=== PATIENT | female | born 1960 | race African-American/Black ===

== ENCOUNTER 2017-02-22 07:13 | Emergency (ER) | payer OTHER ==
[~2017-02-22] VITALS: Ht 162.6 cm; Wt 54.0 kg
[~2017-02-22 07:13] MED LIST: ACET-3161; AZIT500T5 PO; DULO60CA63; HYDR-3927; IBUP-2029; LEVO500T15 PO; METH-612
[2017-02-22] MEDS ORDERED: MORPHINE SULFATE 4 MG/ML CPJ (NOT FOR IM USE) IV STA (07:25)
[2017-02-22] MEDS ORDERED: ONDANSETRON HCL 4MG/2ML VIAL IV STA (07:25)
[2017-02-22] MEDS ORDERED: SODIUM CHLORIDE 0.9% 1000ML BAG (SEPSIS BOLUS) IV ONE (07:30)
[2017-02-22 08:07] LABS: BASOPHILS % 0.3 % (0.0-2.0); EOSINOPHILS % 0.3 % (0.0-5.0); HEMATOCRIT. 35.8 % (36.0-48.0); HEMOGLOBIN. 11.9 g/dL (12.0-16.0); LYMPHOCYTES % 37.6 % (20.0-50.0); MEAN CORPUSCULAR VOLUME 90.3 fL (81.0-99.0); MEAN PLATELET VOLUME 8.1 fl (7.4-10.4); MONOCYTES % 10.2 % (2.0-8.0); NEUTROPHILS % 51.6 % (40.0-76.0); PLATELET 194 x1000/uL (130-400); RED BLOOD CELL COUNT 3.96 mill/uL (4.2-5.4); RED CELL DISTRIBUTION WIDTH 13.1 % (11.6-14.6)
[2017-02-22 08:11] LABS: PROTHROMBIN TIME 10.7 sec
[2017-02-22 08:23] LABS: CHLORIDE 106 mEq/L (98-107)
[2017-02-22 08:32] LABS: CARBON DIOXIDE 22 mEq/L (21-32); ETHANOL BLOOD < 10 mg/dL
[2017-02-22 08:35] LABS: TROPONIN I < 0.02 ng/mL (0.00-0.04)
[2017-02-22 09:12] LABS: GLUCOSE URINE NEGATIVE (NEGATIVE); KETONES URINE 1+ (NEGATIVE); LEUKOCYTE ESTERASE URINE NEGATIVE (NEGATIVE); NITRITE URINE NEGATIVE (NEGATIVE); OCCULT BLOOD URINE NEGATIVE (NEGATIVE); PROTEIN URINE NEGATIVE (NEGATIVE); SPECIFIC GRAVITY URINE 1.012 (1.005-1.030); UROBILINOGEN URINE 0.2 E.U./dL (0.2-1.0)
[2017-02-22 09:14] LABS: CLARITY URINE CLEAR (CLEAR); COLOR URINE PALE YELLOW (YELLOW)
[2017-02-22 10:05] LABS: *AMPHETAMINES SCREEN URINE NEGATIVE (NEGATIVE); *BARBITURATES SCREEN URINE NEGATIVE (NEGATIVE); *BENZODIAZEPINES SCREEN URINE NEGATIVE (NEGATIVE); *COCAINE SCREEN URINE PRESUMTIVE POSITIVE (NEGATIVE); CANNABINOID URINE SCREEN NEGATIVE (NEGATIVE); METHADONE URINE SCREEN NEGATIVE (NEGATIVE); OPIATES URINE SCREEN NEGATIVE (NEGATIVE); PHENCYCLIDINE URINE SCREEN NEGATIVE (NEGATIVE)
[2017-02-22 10:30] VITALS: BP 164/78
== END 2017-02-22 10:30 | disposition home or self-care (01) ==
LOC: ER 07:23
DX: R10.13 Epigastric pain (principal); Z88.0 Allergy status to penicillin; Z88.6 Allergy status to analgesic agent; Z79.899 Other long term (current) drug therapy; F17.200 Nicotine dependence, unspecified, uncomplicated; J45.909 Unspecified asthma, uncomplicated; E03.9 Hypothyroidism, unspecified; E11.65 Type 2 diabetes mellitus with hyperglycemia
CPT/HCPCS: 36415; 71010; 80053; 80305; 81003; 83605; 83690; 83880; 84484; 85025; 85610; 87040; 87086; 93005; 96361; 96374; 96375; 99285; G0482; J2270; J2405; J7030; Z7610

== ENCOUNTER 2017-03-12 08:34 | Emergency (ER) | payer MEDICAID, OTHER ==
[2017-03-12 09:28] LABS: BASOPHILS % 0.3 % (0.0-2.0); HEMATOCRIT. 36.4 % (36.0-48.0); HEMOGLOBIN. 12.1 g/dL (12.0-16.0); LYMPHOCYTES % 39.9 % (20.0-50.0); MEAN CORPUSCULAR HEMOGLOBIN 29.7 pg (28.0-32.0); MEAN CORPUSCULAR VOLUME 89.5 fL (81.0-99.0); MEAN PLATELET VOLUME 8.2 fl (7.4-10.4); MONOCYTES % 7.9 % (2.0-8.0); NEUTROPHILS % 50.9 % (40.0-76.0); PLATELET 239 x1000/uL (130-400); RED BLOOD CELL COUNT 4.07 mill/uL (4.2-5.4); RED CELL DISTRIBUTION WIDTH 12.6 % (11.6-14.6)
[2017-03-12 09:34] LABS: PROTHROMBIN TIME 10.7 sec
[2017-03-12 09:36] LABS: AMMONIA 22 uMol/L (<32)
[2017-03-12 09:40] LABS: CARBON DIOXIDE 29 mEq/L (21-32); CHLORIDE 102 mEq/L (98-107); ETHANOL BLOOD < 10 mg/dL; TROPONIN I < 0.02 ng/mL (0.00-0.04)
[2017-03-12 09:54] LABS: CLARITY URINE CLEAR (CLEAR); COLOR URINE YELLOW (YELLOW); GLUCOSE URINE NEGATIVE (NEGATIVE); KETONES URINE NEGATIVE (NEGATIVE); LEUKOCYTE ESTERASE URINE NEGATIVE (NEGATIVE); NITRITE URINE NEGATIVE (NEGATIVE); OCCULT BLOOD URINE NEGATIVE (NEGATIVE); PROTEIN URINE NEGATIVE (NEGATIVE); SPECIFIC GRAVITY URINE 1.013 (1.005-1.030); UROBILINOGEN URINE 0.2 E.U./dL (0.2-1.0)
[2017-03-12 10:30] LABS: *AMPHETAMINES SCREEN URINE NEGATIVE (NEGATIVE); *BARBITURATES SCREEN URINE NEGATIVE (NEGATIVE); *BENZODIAZEPINES SCREEN URINE PRESUMTIVE POSITIVE (NEGATIVE); *COCAINE SCREEN URINE NEGATIVE (NEGATIVE); CANNABINOID URINE SCREEN NEGATIVE (NEGATIVE); METHADONE URINE SCREEN NEGATIVE (NEGATIVE); OPIATES URINE SCREEN NEGATIVE (NEGATIVE); PHENCYCLIDINE URINE SCREEN NEGATIVE (NEGATIVE)
[2017-03-12] MEDS ORDERED: SODIUM CHLORIDE 0.9% 1,000 ML IV ONE (10:42)
[2017-03-12 12:11] VITALS: BP 122/87
== END 2017-03-12 12:13 | disposition home or self-care (01) ==
LOC: ER 08:51
DX: R53.1 Weakness (principal); G89.29 Other chronic pain; M54.5 Low back pain; F32.9 Major depressive disorder, single episode, unspecified; E11.9 Type 2 diabetes mellitus without complications; J45.909 Unspecified asthma, uncomplicated; E03.9 Hypothyroidism, unspecified; F17.200 Nicotine dependence, unspecified, uncomplicated; Z88.0 Allergy status to penicillin; Z88.6 Allergy status to analgesic agent; Z88.8 Allergy status to other drugs, medicaments and biological substances; Z91.041 Radiographic dye allergy status; Z79.899 Other long term (current) drug therapy; Z90.49 Acquired absence of other specified parts of digestive tract
CPT/HCPCS: 36415; 80053; 80305; 80307; 80329; 81003; 82140; 83880; 84443; 84484; 85025; 85610; 93005; 99285; G0482; Z7610; J7030

== ENCOUNTER 2017-03-14 07:35 | Inpatient (IN) | payer MEDICAID, OTHER ==
[~2017-03-14] VITALS: Ht 160 cm; Wt 54.9 kg
[2017-03-14 09:19] LABS: BASOPHILS % 0.4 % (0.0-2.0); EOSINOPHILS % 0.7 % (0.0-5.0); HEMATOCRIT. 32.2 % (36.0-48.0); HEMOGLOBIN. 10.7 g/dL (12.0-16.0); MEAN CORPUSCULAR HEMOGLOBIN 29.8 pg (28.0-32.0); MEAN CORPUSCULAR VOLUME 89.6 fL (81.0-99.0); MEAN PLATELET VOLUME 8.2 fl (7.4-10.4); MONOCYTES % 9.6 % (2.0-8.0); NEUTROPHILS % 46.3 % (40.0-76.0); PLATELET 230 x1000/uL (130-400); RED CELL DISTRIBUTION WIDTH 12.7 % (11.6-14.6)
[2017-03-14 09:24] LABS: CHLORIDE 104 mEq/L (98-107)
[2017-03-14 09:32] LABS: CARBON DIOXIDE 23 mEq/L (21-32); ETHANOL BLOOD < 10 mg/dL
[2017-03-14 10:43] LABS: T4 FREE 3.51 ng/dL (0.76-1.46)
[2017-03-14] MEDS ORDERED: HYDROCORTISONE SOD SUCCINATE 100 MG/2 ML VIAL IV ONE (12:30)
[2017-03-14] MEDS ORDERED: LORAZEPAM 2MG/ML CPJ IV ONE (12:30)
[2017-03-14] MEDS ORDERED: POTASSIUM IODIDE 1 GM/ML PO ONE (12:30)
[2017-03-14] MEDS ORDERED: METOPROLOL TARTRATE 5MG/5ML VIAL IV ONE (12:30)
[2017-03-14] MEDS ORDERED: ONDANSETRON HCL 4MG/2ML VIAL IV ONE (12:45)
[2017-03-14] MEDS ORDERED: MORPHINE SULFATE 4 MG/ML CPJ (NOT FOR IM USE) IV ONE (12:45)
[2017-03-14 17:02] VITALS: BP 152/66
[2017-03-14 17:52] VITALS: BP 152/66
[2017-03-14 20:00] VITALS: BP 118/61
[2017-03-14] MEDS: LORAZEPAM 2MG/ML CPJ IV PRN (20:53)
[2017-03-14] MEDS ORDERED: DEXTROSE 50% WATER 50ML SYRINGE IV PRN (22:00)
[2017-03-14] MEDS: HYDROCORTISONE SOD SUCCINATE 100 MG/2 ML VIAL IV SCH (23:18)
[2017-03-15] VITALS: BP 110/59
[2017-03-15] MEDS: LORAZEPAM 2MG/ML CPJ IV PRN ×5 (02:06→20:58)
[2017-03-15 04:00] VITALS: BP 99/41
[2017-03-15] MEDS: BLOOD SUGAR DIAGNOSTIC STRIP TEST SCH ×4 (06:00→21:00)
[2017-03-15] MEDS: HYDROCORTISONE SOD SUCCINATE 100 MG/2 ML VIAL IV SCH ×3 (06:00→22:06)
[2017-03-15 06:35] LABS: HEMATOCRIT 28.9 % (36.0-48.0); HEMOGLOBIN 9.7 g/dL (12.0-16.0); MEAN CORPUSCULAR VOLUME 89.8 fL (81.0-99.0); PLATELET 218 x1000/uL (130-400); RED BLOOD CELL COUNT 3.22 mill/uL (4.2-5.4); RED CELL DISTRIBUTION WIDTH 12.7 % (11.6-14.6)
[2017-03-15] MEDS: INSULIN LISPRO 100 UNITS/ML SUBCUT SCH ×4 (06:44→21:00)
[2017-03-15 08:30] VITALS: BP 130/64
[2017-03-15] MEDS ORDERED: PROPRANOLOL HCL 10MG TABLET PO SCH ×2 (09:00→21:00)
[2017-03-15 12:00] VITALS: BP 112/40
[2017-03-15] MEDS: PROPRANOLOL HCL 20MG TABLET PO SCH ×3 (14:00→21:27)
[2017-03-15 20:00] VITALS: BP 106/58
[2017-03-15] MEDS: QUETIAPINE FUMARATE 25MG TABLET PO SCH (21:00)
[2017-03-15 21:36] LABS: CARBON DIOXIDE 20 mEq/L (21-32); CHLORIDE 115 mEq/L (98-107)
[2017-03-16] VITALS: BP 139/72
[2017-03-16] MEDS: SODIUM CHLORIDE 0.45% 1,000 ML IV SCH ×2 (00:58→10:19)
[2017-03-16] MEDS: PROPYLTHIOURACIL 50MG TABLET PO SCH ×6 (00:58→20:00)
[2017-03-16] MEDS: LORAZEPAM 2MG/ML CPJ IV PRN ×4 (02:23→14:24)
[2017-03-16 04:00] VITALS: BP 126/65
[2017-03-16] MEDS: HYDROCORTISONE SOD SUCCINATE 100 MG/2 ML VIAL IV SCH ×3 (05:02→22:37)
[2017-03-16] MEDS: PROPRANOLOL HCL 20MG TABLET PO SCH ×3 (05:03→22:38)
[2017-03-16 06:12] LABS: BASOPHILS % 0.1 % (0.0-2.0); HEMATOCRIT. 30.7 % (36.0-48.0); HEMOGLOBIN. 10.3 g/dL (12.0-16.0); LYMPHOCYTES % 22.8 % (20.0-50.0); MEAN CORPUSCULAR HEMOGLOBIN 30.1 pg (28.0-32.0); MEAN CORPUSCULAR VOLUME 90.2 fL (81.0-99.0); MEAN PLATELET VOLUME 8.2 fl (7.4-10.4); MONOCYTES % 6.2 % (2.0-8.0); NEUTROPHILS % 70.9 % (40.0-76.0); PLATELET 231 x1000/uL (130-400); RED BLOOD CELL COUNT 3.41 mill/uL (4.2-5.4); RED CELL DISTRIBUTION WIDTH 12.8 % (11.6-14.6)
[2017-03-16] MEDS: BLOOD SUGAR DIAGNOSTIC STRIP TEST SCH ×4 (06:29→21:00)
[2017-03-16] MEDS: INSULIN LISPRO 100 UNITS/ML SUBCUT SCH ×4 (06:31→23:11)
[2017-03-16 06:48] LABS: CHLORIDE 114 mEq/L (98-107)
[2017-03-16 07:01] LABS: CARBON DIOXIDE 20 mEq/L (21-32); HDL CHOLESTEROL 51 mg/dL (40-59); LDL CHOLESTEROL 88 mg/dL (5-100); PHOSPHORUS 4.9 mg/dL (2.5-4.9); PREALBUMIN 21.6 mg/dL (20.0-40.0); T4 FREE 3.33 ng/dL (0.76-1.46)
[2017-03-16 08:00] VITALS: BP 126/69
[2017-03-16] MEDS: QUETIAPINE FUMARATE 25MG TABLET PO SCH ×2 (08:37→22:38)
[2017-03-16] MEDS: POTASSIUM CHLORIDE 20MEQ/PACKET PO SCH ×2 (11:35→13:46)
[2017-03-16 12:30] VITALS: BP 109/59
[2017-03-16 16:08] VITALS: BP 126/64
[2017-03-16 20:00] VITALS: BP 143/78
[2017-03-16] MEDS ORDERED: HALOPERIDOL LACTATE 5MG/ML VIAL IM ONE (22:30)
[2017-03-16] MEDS ORDERED: LORAZEPAM 2MG/ML CPJ IV NR (22:30)
[2017-03-16] MEDS ORDERED: LORAZEPAM 2MG/ML CPJ IV ONE (22:30)
[2017-03-16] MEDS ORDERED: DIPHENHYDRAMINE 50MG/ML VIAL IV ONE ×2 (22:30)
[2017-03-16] MEDS ORDERED: HALOPERIDOL LACTATE 5MG/ML VIAL IM NR (22:31)
[2017-03-16] MEDS: DIPHENHYDRAMINE 50MG/ML VIAL IV NR ×2 (22:39→23:28)
[2017-03-17] VITALS: BP 141/82
[2017-03-17] MEDS: LORAZEPAM 2MG/ML CPJ IV PRN ×6 (00:39→22:44)
[2017-03-17] MEDS: PROPYLTHIOURACIL 50MG TABLET PO SCH ×8 (00:39→23:58)
[2017-03-17] MEDS: SODIUM CHLORIDE 0.45% 1,000 ML IV SCH ×3 (01:10→16:59)
[2017-03-17 04:00] VITALS: BP 160/73
[2017-03-17] MEDS: PROPRANOLOL HCL 20MG TABLET PO SCH ×3 (05:33→22:00)
[2017-03-17] MEDS: HYDROCORTISONE SOD SUCCINATE 100 MG/2 ML VIAL IV SCH ×3 (05:33→20:49)
[2017-03-17 06:27] LABS: CARBON DIOXIDE 22 mEq/L (21-32); CHLORIDE 115 mEq/L (98-107); PHOSPHORUS 3.5 mg/dL (2.5-4.9); TOTAL IRON BINDING CAPACITY 257 ug/dL (250-450)
[2017-03-17 06:28] LABS: AMMONIA 13 uMol/L (<32)
[2017-03-17] MEDS: BLOOD SUGAR DIAGNOSTIC STRIP TEST SCH ×4 (06:41→20:45)
[2017-03-17 06:55] LABS: HEMATOCRIT. 27.1 % (36.0-48.0); MEAN CORPUSCULAR HEMOGLOBIN 29.9 pg (28.0-32.0); MEAN CORPUSCULAR VOLUME 89.7 fL (81.0-99.0); PLATELET 200 x1000/uL (130-400); RED BLOOD CELL COUNT 3.02 mill/uL (4.2-5.4); RED CELL DISTRIBUTION WIDTH 12.9 % (11.6-14.6)
[2017-03-17] MEDS: INSULIN LISPRO 100 UNITS/ML SUBCUT SCH ×4 (07:00→20:47)
[2017-03-17 07:34] LABS: VITAMIN B12 SERUM 753 pg/mL (211-911)
[2017-03-17 07:39] LABS: FOLIC ACID (FOLATE) SERUM > 20.00 ng/mL (>5.38)
[2017-03-17 08:00] VITALS: BP 162/84
[2017-03-17] MEDS: QUETIAPINE FUMARATE 25MG TABLET PO SCH ×2 (09:14→20:38)
[2017-03-17 12:00] VITALS: BP 156/73
[2017-03-17 13:59] LABS: PLATELET ESTIMATE NORMAL
[2017-03-17 16:00] VITALS: BP 144/96
[2017-03-17] MEDS ORDERED: KCL 20MEQ/100ML PREMIX 100 ML IV NR (19:00)
[2017-03-17 20:00] VITALS: BP 156/86
[2017-03-17] MEDS: ONDANSETRON HCL 4MG/2ML VIAL IV PRN (22:27)
[2017-03-18] VITALS: BP 161/86
[2017-03-18 04:00] VITALS: BP 187/97
[2017-03-18] MEDS: PROPYLTHIOURACIL 50MG TABLET PO SCH ×6 (04:00→23:26)
[2017-03-18] MEDS: HYDROCORTISONE SOD SUCCINATE 100 MG/2 ML VIAL IV SCH ×2 (04:09→17:37)
[2017-03-18] MEDS: ONDANSETRON HCL 4MG/2ML VIAL IV PRN (04:09)
[2017-03-18] MEDS: SODIUM CHLORIDE 0.45% 1,000 ML IV SCH ×2 (05:07→12:46)
[2017-03-18] MEDS: PROPRANOLOL HCL 20MG TABLET PO SCH ×3 (06:00→21:02)
[2017-03-18] MEDS: BLOOD SUGAR DIAGNOSTIC STRIP TEST SCH ×4 (06:17→21:01)
[2017-03-18] MEDS: INSULIN LISPRO 100 UNITS/ML SUBCUT SCH ×4 (06:18→21:15)
[2017-03-18 08:00] VITALS: BP 190/104
[2017-03-18] MEDS: QUETIAPINE FUMARATE 25MG TABLET PO SCH ×2 (09:00→20:58)
[2017-03-18 09:20] LABS: HEMATOCRIT. 33.7 % (36.0-48.0); HEMOGLOBIN. 11.5 g/dL (12.0-16.0); MEAN CORPUSCULAR VOLUME 88.3 fL (81.0-99.0); PLATELET 219 x1000/uL (130-400); RED BLOOD CELL COUNT 3.81 mill/uL (4.2-5.4); RED CELL DISTRIBUTION WIDTH 12.8 % (11.6-14.6)
[2017-03-18 09:37] LABS: CARBON DIOXIDE 19 mEq/L (21-32); CHLORIDE 105 mEq/L (98-107); PHOSPHORUS 3.9 mg/dL (2.5-4.9)
[2017-03-18] MEDS: NITROGLYCERIN 2% 30 GM OINT. TOP SCH ×4 (09:42→23:53)
[2017-03-18 10:09] LABS: A/G RATIO 1.2 (0.7-1.7); ALBUMIN 3.2 g/dL (2.9-4.4); ALPHA-1-GLOBULIN 0.2 g/dL (0.0-0.4); ALPHA-2-GLOBULIN 0.7 g/dL (0.4-1.0); BETA GLOBULIN 0.9 g/dL (0.7-1.3); GAMMA GLOBULINS 0.8 g/dL (0.4-1.8); GLOBULIN TOTAL 2.6 g/dL (2.2-3.9); M-SPIKE Not Observed g/dL (Not Observed); TOTAL PROTEIN SERUM 5.8 g/dL (6.0-8.5)
[2017-03-18 12:00] VITALS: BP 159/101
[2017-03-18 13:48] LABS: PLATELET ESTIMATE NORMAL
[2017-03-18] MEDS: LORAZEPAM 2MG/ML CPJ IV PRN ×2 (14:40→23:26)
[2017-03-18] MEDS ORDERED: KCL 20MEQ/100ML PREMIX 100 ML IV NR (15:00)
[2017-03-18 16:00] VITALS: BP 105/69
[2017-03-18] MEDS: SODIUM CHL 0.45% + KCL 20MEQ/L 1,000 ML IV SCH (16:40)
[2017-03-18 20:00] VITALS: BP 147/92
[2017-03-19] VITALS: BP 110/60
[2017-03-19] MEDS: SODIUM CHL 0.45% + KCL 20MEQ/L 1,000 ML IV SCH ×2 (03:30→20:12)
[2017-03-19] MEDS: PROPYLTHIOURACIL 50MG TABLET PO SCH ×5 (03:31→20:12)
[2017-03-19] MEDS: LORAZEPAM 2MG/ML CPJ IV PRN ×6 (03:31→20:12)
[2017-03-19 04:00] VITALS: BP 96/57
[2017-03-19] MEDS: PROPRANOLOL HCL 20MG TABLET PO SCH ×3 (05:01→20:12)
[2017-03-19] MEDS: NITROGLYCERIN 2% 30 GM OINT. TOP SCH (05:02)
[2017-03-19] MEDS: BLOOD SUGAR DIAGNOSTIC STRIP TEST SCH ×4 (06:03→20:30)
[2017-03-19] MEDS: HYDROCORTISONE SOD SUCCINATE 100 MG/2 ML VIAL IV SCH ×2 (06:10→18:33)
[2017-03-19] MEDS: INSULIN LISPRO 100 UNITS/ML SUBCUT SCH ×4 (06:19→20:30)
[2017-03-19 06:44] LABS: HEMATOCRIT. 31.2 % (36.0-48.0); HEMOGLOBIN. 10.5 g/dL (12.0-16.0); MEAN CORPUSCULAR HEMOGLOBIN 29.7 pg (28.0-32.0); MEAN CORPUSCULAR VOLUME 88.4 fL (81.0-99.0); PLATELET 213 x1000/uL (130-400); RED BLOOD CELL COUNT 3.53 mill/uL (4.2-5.4); RED CELL DISTRIBUTION WIDTH 12.5 % (11.6-14.6)
[2017-03-19 07:19] LABS: CARBON DIOXIDE 22 mEq/L (21-32); CHLORIDE 106 mEq/L (98-107); T4 FREE 5.09 ng/dL (0.76-1.46)
[2017-03-19] MEDS: QUETIAPINE FUMARATE 25MG TABLET PO SCH ×2 (08:37→20:12)
[2017-03-19 09:00] VITALS: BP 97/49
[2017-03-19 10:17] LABS: PLATELET ESTIMATE NORMAL
[2017-03-19] MEDS ORDERED: POTASSIUM CHLORIDE INJ 40 MEQ in DEXT 5% WATER 250 ML IV NR ×2 (10:30→22:30)
[2017-03-19 12:00] VITALS: BP 118/64
[2017-03-19] MEDS ORDERED: HEPARIN 5000 UNITS/ML VIAL IV ONE (13:45)
[2017-03-19] MEDS ORDERED: HEPARIN SODIUM 1,000 UNIT/1ML VIAL IV NR (15:00)
[2017-03-19 16:00] VITALS: BP 121/63
[2017-03-19] MEDS: TRAMADOL 50MG TABLET PO PRN (16:16)
[2017-03-19 16:38] LABS: *AMPHETAMINES SCREEN URINE NEGATIVE (NEGATIVE); *BARBITURATES SCREEN URINE NEGATIVE (NEGATIVE); *BENZODIAZEPINES SCREEN URINE NEGATIVE (NEGATIVE); *COCAINE SCREEN URINE NEGATIVE (NEGATIVE); CANNABINOID URINE SCREEN NEGATIVE (NEGATIVE); METHADONE URINE SCREEN NEGATIVE (NEGATIVE); OPIATES URINE SCREEN NEGATIVE (NEGATIVE); PHENCYCLIDINE URINE SCREEN NEGATIVE (NEGATIVE)
[2017-03-19] MEDS: DIPHENHYDRAMINE 50MG/ML VIAL IV PRN (18:32)
[2017-03-19 20:00] VITALS: BP 127/73
[2017-03-19] MEDS ORDERED: MAGNESIUM 4 G PREMIX 100 ML IV NR (22:30)
[2017-03-20] MEDS: PROPYLTHIOURACIL 50MG TABLET PO SCH ×6 (00:09→20:44)
[2017-03-20 00:14] VITALS: BP 103/50
[2017-03-20] MEDS: LORAZEPAM 2MG/ML CPJ IV PRN ×5 (01:39→20:45)
[2017-03-20 04:00] VITALS: BP 106/72
[2017-03-20] MEDS: PROPRANOLOL HCL 20MG TABLET PO SCH ×3 (05:01→20:47)
[2017-03-20 05:13] LABS: HEMOGLOBIN. 9.4 g/dL (12.0-16.0); MEAN CORPUSCULAR HEMOGLOBIN 29.7 pg (28.0-32.0); MEAN CORPUSCULAR VOLUME 88.4 fL (81.0-99.0); PLATELET 191 x1000/uL (130-400); RED BLOOD CELL COUNT 3.16 mill/uL (4.2-5.4); RED CELL DISTRIBUTION WIDTH 12.6 % (11.6-14.6)
[2017-03-20 05:37] LABS: CARBON DIOXIDE 25 mEq/L (21-32); CHLORIDE 111 mEq/L (98-107); PHOSPHORUS 2.7 mg/dL (2.5-4.9)
[2017-03-20] MEDS: HYDROCORTISONE SOD SUCCINATE 100 MG/2 ML VIAL IV SCH ×2 (05:51→17:43)
[2017-03-20] MEDS: BLOOD SUGAR DIAGNOSTIC STRIP TEST SCH ×4 (05:51→20:54)
[2017-03-20] MEDS: TRAMADOL 50MG TABLET PO PRN ×2 (05:51→20:56)
[2017-03-20] MEDS: INSULIN LISPRO 100 UNITS/ML SUBCUT SCH ×3 (06:36→17:15)
[2017-03-20 08:00] VITALS: BP 121/66
[2017-03-20] MEDS: SODIUM CHL 0.45% + KCL 20MEQ/L 1,000 ML IV SCH (08:57)
[2017-03-20 08:58] LABS: PLATELET ESTIMATE NORMAL
[2017-03-20] MEDS: POTASSIUM CHLORIDE 10MEQ TABLET SR PO SCH (09:02)
[2017-03-20] MEDS: QUETIAPINE FUMARATE 25MG TABLET PO SCH (09:02)
[2017-03-20 12:00] VITALS: BP 109/55
[2017-03-20] MEDS ORDERED: INSULIN LISPRO 100 UNITS/ML SUBCUT NR (14:15)
[2017-03-20] MEDS ORDERED: INSULIN DETEMIR UD 100 UNITS/ML SYR SUBCUT NR (15:00)
[2017-03-20 16:00] VITALS: BP 132/68
[2017-03-20] MEDS: DIPHENHYDRAMINE 50MG/ML VIAL IV PRN (16:18)
[2017-03-20] MEDS: DIPHENHYDRAMINE 50MG/ML VIAL IV NR ×2 (16:58→20:45)
[2017-03-20 19:09] LABS: METHYLMALONIC ACID 259 nmol/L (0-378)
[2017-03-20 20:00] VITALS: BP 191/99
[2017-03-20] MEDS ORDERED: INSULIN LISPRO 100 UNITS/ML SUBCUT SCH (20:00)
[2017-03-20] MEDS: QUETIAPINE FUMARATE 50MG TABLET PO SCH (20:44)
[2017-03-20] MEDS ORDERED: QUETIAPINE FUMARATE 25MG TABLET PO SCH (21:00)
[2017-03-21] VITALS: BP 121/91
[2017-03-21] MEDS ORDERED: ZOLPIDEM TARTRATE 5MG TABLET PO PRN
[2017-03-21] MEDS: PROPYLTHIOURACIL 50MG TABLET PO SCH ×6 (01:42→21:09)
[2017-03-21] MEDS: LORAZEPAM 2MG/ML CPJ IV PRN ×4 (02:25→21:47)
[2017-03-21] MEDS: DIPHENHYDRAMINE 50MG/ML VIAL IV PRN ×3 (02:25→21:18)
[2017-03-21 04:00] VITALS: BP 160/96
[2017-03-21] MEDS: TRAMADOL 50MG TABLET PO PRN (04:02)
[2017-03-21] MEDS: PROPRANOLOL HCL 20MG TABLET PO SCH ×3 (05:50→21:08)
[2017-03-21] MEDS: BLOOD SUGAR DIAGNOSTIC STRIP TEST SCH ×4 (05:50→21:01)
[2017-03-21] MEDS: INSULIN LISPRO 100 UNITS/ML SUBCUT SCH ×3 (06:01→16:33)
[2017-03-21] MEDS: INSULIN LISPRO (LOW DOSE) 100 UNITS/ML SUBCUT SCH ×3 (06:07→16:34)
[2017-03-21 08:00] VITALS: BP 146/65
[2017-03-21] MEDS: HYDROCORTISONE SOD SUCCINATE 100 MG/2 ML VIAL IV SCH (08:07)
[2017-03-21] MEDS: POTASSIUM CHLORIDE 10MEQ TABLET SR PO SCH (08:07)
[2017-03-21] MEDS: QUETIAPINE FUMARATE 50MG TABLET PO SCH (08:07)
[2017-03-21] MEDS: SODIUM CHL 0.45% + KCL 20MEQ/L 1,000 ML IV SCH ×2 (08:30→20:57)
[2017-03-21] MEDS ORDERED: INSULIN DETEMIR UD 100 UNITS/ML SYR SUBCUT SCH ×2 (10:00)
[2017-03-21 12:00] VITALS: BP 123/81
[2017-03-21 16:00] VITALS: BP 151/82
[2017-03-21] MEDS ORDERED: HYDROCORTISONE SOD SUCCINATE 100 MG/2 ML VIAL IV SCH (17:00)
[2017-03-21 20:00] VITALS: BP 140/72
[2017-03-21 20:54] LABS: CARBON DIOXIDE 26 mEq/L (21-32); CHLORIDE 113 mEq/L (98-107); PHOSPHORUS 3.1 mg/dL (2.5-4.9)
[2017-03-21] MEDS: QUETIAPINE FUMARATE 100MG TABLET PO SCH (21:08)
[2017-03-21 21:14] LABS: HEPATITIS B SURFACE ANTIGEN NEGATIVE
[2017-03-21 21:42] LABS: HEPATITIS B CORE AB IGM NEGATIVE
[2017-03-21 21:44] LABS: HEPATITIS A AB IGM NEGATIVE (NEGATIVE)
[2017-03-22] VITALS: BP 140/67
[2017-03-22] MEDS: PROPYLTHIOURACIL 50MG TABLET PO SCH ×3 (00:27→08:53)
[2017-03-22] MEDS: LORAZEPAM 2MG/ML CPJ IV PRN ×5 (01:00→23:01)
[2017-03-22 04:00] VITALS: BP 156/84
[2017-03-22] MEDS: DIPHENHYDRAMINE 50MG/ML VIAL IV PRN (04:17)
[2017-03-22 05:47] LABS: HEMATOCRIT. 27.1 % (36.0-48.0); HEMOGLOBIN. 9.2 g/dL (12.0-16.0); MEAN CORPUSCULAR HEMOGLOBIN 30.1 pg (28.0-32.0); MEAN CORPUSCULAR VOLUME 88.9 fL (81.0-99.0); PLATELET 191 x1000/uL (130-400); RED BLOOD CELL COUNT 3.05 mill/uL (4.2-5.4); RED CELL DISTRIBUTION WIDTH 13.1 % (11.6-14.6)
[2017-03-22] MEDS: BLOOD SUGAR DIAGNOSTIC STRIP TEST SCH ×4 (05:56→21:16)
[2017-03-22] MEDS: PROPRANOLOL HCL 20MG TABLET PO SCH ×3 (06:00→21:28)
[2017-03-22 06:12] LABS: CHLORIDE 111 mEq/L (98-107)
[2017-03-22] MEDS: INSULIN LISPRO (LOW DOSE) 100 UNITS/ML SUBCUT SCH ×3 (06:23→17:34)
[2017-03-22] MEDS: INSULIN LISPRO 100 UNITS/ML SUBCUT SCH ×3 (06:25→17:34)
[2017-03-22 06:34] LABS: CARBON DIOXIDE 26 mEq/L (21-32); T4 FREE 2.29 ng/dL (0.76-1.46)
[2017-03-22] MEDS: HYDROCORTISONE SOD SUCCINATE 100 MG/2 ML VIAL IV SCH ×2 (08:26→17:33)
[2017-03-22] MEDS: SODIUM CHL 0.45% + KCL 20MEQ/L 1,000 ML IV SCH ×2 (08:26→21:17)
[2017-03-22] MEDS: DULOXETINE HCL 60MG DR CAPSULE PO SCH (08:26)
[2017-03-22] MEDS: QUETIAPINE FUMARATE 100MG TABLET PO SCH ×2 (08:26→21:29)
[2017-03-22] MEDS: GABAPENTIN 300MG CAPSULE PO SCH ×3 (08:26→21:29)
[2017-03-22] MEDS: POTASSIUM CHLORIDE 10MEQ TABLET SR PO SCH (08:27)
[2017-03-22 08:43] VITALS: BP 159/77
[2017-03-22] MEDS: METHIMAZOLE 5MG TABLET PO SCH ×3 (11:18→21:29)
[2017-03-22 11:55] VITALS: BP 125/62
[2017-03-22 13:02] LABS: NUCLEATED RED BLOOD CELLS 1 /100 WBC; PLATELET ESTIMATE NORMAL
[2017-03-22 20:00] VITALS: BP 164/70
[2017-03-23] VITALS: BP 96/42
[2017-03-23 04:00] VITALS: BP 161/65
[2017-03-23] MEDS: METHIMAZOLE 5MG TABLET PO SCH ×4 (06:00→21:11)
[2017-03-23] MEDS: GABAPENTIN 300MG CAPSULE PO SCH ×3 (06:00→21:11)
[2017-03-23] MEDS: PROPRANOLOL HCL 20MG TABLET PO SCH ×3 (06:00→22:00)
[2017-03-23] MEDS: BLOOD SUGAR DIAGNOSTIC STRIP TEST SCH ×4 (06:06→21:26)
[2017-03-23] MEDS: INSULIN LISPRO (LOW DOSE) 100 UNITS/ML SUBCUT SCH ×4 (06:06→17:49)
[2017-03-23] MEDS: HYDROCORTISONE SOD SUCCINATE 100 MG/2 ML VIAL IV SCH ×2 (06:13→17:11)
[2017-03-23] MEDS: SODIUM CHL 0.45% + KCL 20MEQ/L 1,000 ML IV SCH ×2 (06:14→16:51)
[2017-03-23] MEDS: INSULIN LISPRO 100 UNITS/ML SUBCUT SCH ×3 (06:33→17:51)
[2017-03-23] MEDS: LORAZEPAM 2MG/ML CPJ IV PRN ×2 (06:49→21:50)
[2017-03-23 07:23] LABS: CARBON DIOXIDE 24 mEq/L (21-32); CHLORIDE 114 mEq/L (98-107); PHOSPHORUS 4.2 mg/dL (2.5-4.9)
[2017-03-23 08:00] VITALS: BP 167/77
[2017-03-23] MEDS: DULOXETINE HCL 60MG DR CAPSULE PO SCH (08:42)
[2017-03-23] MEDS: POTASSIUM CHLORIDE 10MEQ TABLET SR PO SCH (08:42)
[2017-03-23] MEDS: QUETIAPINE FUMARATE 100MG TABLET PO SCH ×2 (08:44→21:11)
[2017-03-23 11:08] LABS: BASOPHILS % 0.2 % (0.0-2.0); EOSINOPHILS % 0.2 % (0.0-5.0); HEMATOCRIT. 28.9 % (36.0-48.0); HEMOGLOBIN. 9.8 g/dL (12.0-16.0); LYMPHOCYTES % 13.1 % (20.0-50.0); MEAN CORPUSCULAR HEMOGLOBIN 30.2 pg (28.0-32.0); MEAN CORPUSCULAR VOLUME 89.2 fL (81.0-99.0); MEAN PLATELET VOLUME 9.2 fl (7.4-10.4); MONOCYTES % 3.6 % (2.0-8.0); NEUTROPHILS % 82.9 % (40.0-76.0); PLATELET 162 x1000/uL (130-400); RED BLOOD CELL COUNT 3.24 mill/uL (4.2-5.4); RED CELL DISTRIBUTION WIDTH 13.1 % (11.6-14.6)
[2017-03-23 12:14] VITALS: BP 150/75
[2017-03-23 16:26] VITALS: BP 104/63
[2017-03-23 20:00] VITALS: BP 110/59
[2017-03-24] VITALS: BP 90/68
[2017-03-24] MEDS: SODIUM CHL 0.45% + KCL 20MEQ/L 1,000 ML IV SCH ×2 (01:46→13:04)
[2017-03-24 04:00] VITALS: BP 176/84
[2017-03-24] MEDS: METHIMAZOLE 5MG TABLET PO SCH ×2 (04:57→14:05)
[2017-03-24] MEDS: PROPRANOLOL HCL 20MG TABLET PO SCH ×2 (04:57→14:06)
[2017-03-24] MEDS: GABAPENTIN 300MG CAPSULE PO SCH ×2 (04:57→14:06)
[2017-03-24] MEDS: LORAZEPAM 2MG/ML CPJ IV PRN ×2 (04:58→08:21)
[2017-03-24] MEDS: HYDROCORTISONE SOD SUCCINATE 100 MG/2 ML VIAL IV SCH ×2 (05:55→17:29)
[2017-03-24] MEDS: BLOOD SUGAR DIAGNOSTIC STRIP TEST SCH ×3 (05:55→17:30)
[2017-03-24] MEDS: INSULIN LISPRO 100 UNITS/ML SUBCUT SCH ×3 (06:55→16:45)
[2017-03-24] MEDS: QUETIAPINE FUMARATE 100MG TABLET PO SCH (08:20)
[2017-03-24] MEDS: POTASSIUM CHLORIDE 10MEQ TABLET SR PO SCH (08:20)
[2017-03-24] MEDS: DULOXETINE HCL 60MG DR CAPSULE PO SCH (08:20)
[2017-03-24 10:52] VITALS: BP 138/81
[2017-03-24] MEDS: INSULIN LISPRO (LOW DOSE) 100 UNITS/ML SUBCUT SCH ×2 (11:45→16:45)
[2017-03-24 11:47] LABS: CHLORIDE 111 mEq/L (98-107)
[2017-03-24 11:54] LABS: CARBON DIOXIDE 26 mEq/L (21-32)
[2017-03-24 12:00] VITALS: BP 150/82
[2017-03-24] MEDS ORDERED: SODIUM CHLORIDE 0.45% 1,000 ML IV SCH (14:30)
[2017-03-24 16:00] VITALS: BP 150/83
== END 2017-03-24 20:31 | disposition short-term general hospital (02) | DRG 424 ==
LOC: ER 08:11 → 5WST 12:26 → ENRESERV 15:34 → 5WST 19:51
PROVIDERS: ADMIT Internal Medicine; ATTEND Internal Medicine
PROC: 02HV33Z Insertion of Infusion Device into Superior Vena Cava, Percutaneous Approach (ICD-10-PCS; principal; 2017-03-14)
PROC: B5181ZA Fluoroscopy of Superior Vena Cava using Low Osmolar Contrast, Guidance (ICD-10-PCS; 2017-03-14)
PROC: B548ZZA Ultrasonography of Superior Vena Cava, Guidance (ICD-10-PCS; 2017-03-14)
DX: E05.00 Thyrotoxicosis with diffuse goiter without thyrotoxic crisis or storm (principal); G92 Toxic encephalopathy; E87.0 Hyperosmolality and hypernatremia; D69.6 Thrombocytopenia, unspecified; E46 Unspecified protein-calorie malnutrition; E11.65 Type 2 diabetes mellitus with hyperglycemia; E27.40 Unspecified adrenocortical insufficiency; F99 Mental disorder, not otherwise specified; F20.9 Schizophrenia, unspecified; R00.0 Tachycardia, unspecified; E86.0 Dehydration; E87.6 Hypokalemia; I10 Essential (primary) hypertension; D63.8 Anemia in other chronic diseases classified elsewhere; E03.9 Hypothyroidism, unspecified; E78.00 Pure hypercholesterolemia, unspecified; E87.1 Hypo-osmolality and hyponatremia; E87.5 Hyperkalemia; F31.9 Bipolar disorder, unspecified; G89.29 Other chronic pain; R10.9 Unspecified abdominal pain; Z91.041 Radiographic dye allergy status; Z88.6 Allergy status to analgesic agent; Z88.1 Allergy status to other antibiotic agents; Z88.0 Allergy status to penicillin; Z88.8 Allergy status to other drugs, medicaments and biological substances; Z91.419 Personal history of unspecified adult abuse; Z79.899 Other long term (current) drug therapy; Z68.21 Body mass index [BMI] 21.0-21.9, adult
CPT/HCPCS: 36415; 36569; 70450; 71010; 76700; 76937; 77001; 80048; 80053; 80061; 80076; 80305; 80307; 80329; 82140; 82607; 82728; 82746; 82962; 83036; 83520; 83540; 83550; 83735; 83921; 84100; 84134; 84155; 84165; 84439; 84443; 84481; 85007; 85025; 85027; 86705; 86709; 86803; 87040; 87077; 87086; 87186; 87340; 93005; 96374; 96375; 99285; C1725; C1893; G0482; J1200; J1720; J1815; J2060; J2270; J2405; J3475; J3480; J3490; J7030; J7060

== ENCOUNTER 2017-04-14 21:10 | Emergency (ER) | payer OTHER ==
[~2017-04-14] VITALS: Ht 167.6 cm; Wt 50.0 kg
[2017-04-14] MEDS ORDERED: MORPHINE SULFATE 10 MG/ML CPJ SUBCUT ONE (23:45)
[2017-04-15 01:48] VITALS: BP 156/79
== END 2017-04-15 01:54 | disposition home or self-care (01) ==
LOC: ER 21:38
DX: M25.511 Pain in right shoulder (principal); M79.671 Pain in right foot; I10 Essential (primary) hypertension; F20.9 Schizophrenia, unspecified; E11.9 Type 2 diabetes mellitus without complications; F32.9 Major depressive disorder, single episode, unspecified; F31.9 Bipolar disorder, unspecified; E05.90 Thyrotoxicosis, unspecified without thyrotoxic crisis or storm; Z88.0 Allergy status to penicillin; Z88.8 Allergy status to other drugs, medicaments and biological substances; W01.0XXA Fall on same level from slipping, tripping and stumbling without subsequent striking against object, initial encounter
CPT/HCPCS: 73030; 73630; 81025; 82962; 96372; 99284; J2270; A4565

== ENCOUNTER 2017-05-04 01:23 | Emergency (ER) | payer OTHER ==
[~2017-05-04] VITALS: Ht 170.2 cm; Wt 54.0 kg
[2017-05-04] MEDS ORDERED: MORPHINE SULFATE 4 MG/ML CPJ (NOT FOR IM USE) IV STA (03:58)
[2017-05-04] MEDS ORDERED: ONDANSETRON HCL 4MG/2ML VIAL IV STA (03:58)
[2017-05-04] MEDS ORDERED: SODIUM CHLORIDE 0.9% 1,000 ML IV ONE (03:58)
[2017-05-04 04:28] LABS: BASOPHILS % 0.4 % (0.0-2.0); EOSINOPHILS % 1.4 % (0.0-5.0); HEMATOCRIT. 32.8 % (36.0-48.0); HEMOGLOBIN. 11.1 g/dL (12.0-16.0); LYMPHOCYTES % 37.6 % (20.0-50.0); MEAN CORPUSCULAR HEMOGLOBIN 31.3 pg (28.0-32.0); MEAN CORPUSCULAR VOLUME 92.5 fL (81.0-99.0); NEUTROPHILS % 53.6 % (40.0-76.0); PLATELET 251 x1000/uL (130-400); RED BLOOD CELL COUNT 3.55 mill/uL (4.2-5.4); RED CELL DISTRIBUTION WIDTH 15.5 % (11.6-14.6)
[2017-05-04 04:37] LABS: CARBON DIOXIDE 22 mEq/L (21-32); CHLORIDE 111 mEq/L (98-107)
[2017-05-04 05:46] LABS: CLARITY URINE CLEAR (CLEAR); COLOR URINE YELLOW (YELLOW); GLUCOSE URINE NEGATIVE (NEGATIVE); KETONES URINE NEGATIVE (NEGATIVE); LEUKOCYTE ESTERASE URINE NEGATIVE (NEGATIVE); NITRITE URINE NEGATIVE (NEGATIVE); OCCULT BLOOD URINE NEGATIVE (NEGATIVE); PROTEIN URINE NEGATIVE (NEGATIVE); SPECIFIC GRAVITY URINE 1.016 (1.005-1.030); UROBILINOGEN URINE 0.2 E.U./dL (0.2-1.0)
[2017-05-04] MEDS ORDERED: KETOROLAC 30MG/ML VIAL IV ONE (06:00)
[2017-05-04] MEDS ORDERED: METOCLOPRAMIDE HCL 10MG/2ML VIAL IV ONE (06:00)
[2017-05-04] MEDS ORDERED: HYDROCODONE/ACETAMINOPHEN 5/325MG TABLET PO ONE (06:15)
[2017-05-04 06:16] VITALS: BP 140/49
[2017-05-04 14:06] LABS: *AMPHETAMINES SCREEN URINE NEGATIVE (NEGATIVE); *BARBITURATES SCREEN URINE NEGATIVE (NEGATIVE); *BENZODIAZEPINES SCREEN URINE NEGATIVE (NEGATIVE); *COCAINE SCREEN URINE NEGATIVE (NEGATIVE); CANNABINOID URINE SCREEN NEGATIVE (NEGATIVE); METHADONE URINE SCREEN NEGATIVE (NEGATIVE); OPIATES URINE SCREEN PRESUMTIVE POSITIVE (NEGATIVE); PHENCYCLIDINE URINE SCREEN NEGATIVE (NEGATIVE)
== END 2017-05-04 07:04 | disposition home or self-care (01) ==
LOC: ER 01:23
DX: R10.84 Generalized abdominal pain (principal); E11.9 Type 2 diabetes mellitus without complications; F17.210 Nicotine dependence, cigarettes, uncomplicated; F20.9 Schizophrenia, unspecified; F32.9 Major depressive disorder, single episode, unspecified; E05.90 Thyrotoxicosis, unspecified without thyrotoxic crisis or storm; F31.9 Bipolar disorder, unspecified; Z90.49 Acquired absence of other specified parts of digestive tract; Z88.0 Allergy status to penicillin; Z88.6 Allergy status to analgesic agent; Z88.8 Allergy status to other drugs, medicaments and biological substances; Z91.041 Radiographic dye allergy status
CPT/HCPCS: 36415; 80053; 80305; 81003; 83690; 85025; 96361; 96374; 96375; 99284; G0482; J1885; J2270; J2405; J2765; J7030; Z7610

== ENCOUNTER 2019-12-28 12:18 | Emergency (ER) | payer MEDICAID, OTHER ==
[~2019-12-28] VITALS: Ht 162.6 cm; Wt 73.0 kg
[~2019-12-28 12:18] MED LIST changes: -AZIT500T5 PO; +AZIT500T8 PO; -DULO60CA63; +DULO60CA64; -LEVO500T15 PO; +LEVO500T2 PO
[2019-12-28 12:49] VITALS: BP 120/51
[2019-12-28] MEDS ORDERED: METHOCARBAMOL 500MG TABLET PO ONE (14:00)
== END 2019-12-28 15:05 | disposition home or self-care (01) ==
LOC: ER 12:18
DX: S16.1XXA Strain of muscle, fascia and tendon at neck level, initial encounter (principal); M25.511 Pain in right shoulder; B35.3 Tinea pedis; R03.0 Elevated blood-pressure reading, without diagnosis of hypertension; Y93.84 Activity, sleeping; Y92.013 Bedroom of single-family (private) house as the place of occurrence of the external cause; E11.9 Type 2 diabetes mellitus without complications
CPT/HCPCS: 73030; 99283

== ENCOUNTER 2021-02-21 10:51 | Emergency (ER) | payer MEDICAID ==
[~2021-02-21] VITALS: Ht 170.2 cm; Wt 77.0 kg
[~2021-02-21 10:51] MED LIST changes: -METH-612; +METH-774
[2021-02-21] MEDS ORDERED: SODIUM CHLORIDE 0.9% 1,000 ML IV ONE (11:45)
[2021-02-21] MEDS ORDERED: INSULIN REGULAR (HUMULIN R) 300UNITS/3ML VIAL IV ONE (11:45)
[2021-02-21 11:51] LABS: BASOPHILS % 0.9 % (0.0-2.0); HEMATOCRIT. 34.9 % (36.0-48.0); LYMPHOCYTES % 27.6 % (20.0-50.0); MEAN CORPUSCULAR HEMOGLOBIN 34.5 pg (28.0-32.0); MEAN CORPUSCULAR VOLUME 100.3 fL (81.0-99.0); MEAN PLATELET VOLUME 7.7 fl (7.4-10.4); MONOCYTES % 5.2 % (2.0-8.0); NEUTROPHILS % 64.3 % (40.0-76.0); PLATELET 345 x1000/uL (130-400); RED BLOOD CELL COUNT 3.48 mill/uL (4.2-5.4); RED CELL DISTRIBUTION WIDTH 13.2 % (11.6-14.6)
[2021-02-21 12:00] LABS: CHLORIDE 105 mEq/L (98-107); PROTHROMBIN TIME 10.4 sec (9.6-11.0)
[2021-02-21] MEDS ORDERED: ONDANSETRON HCL 4MG/2ML INJ IV ONE (12:15)
[2021-02-21] MEDS ORDERED: MORPHINE SULFATE 4 MG/ML CPJ (NOT FOR IM USE) IV ONE (12:15)
[2021-02-21] MEDS ORDERED: CELE100C MT (14:21)
[2021-02-21] MEDS ORDERED: ONDA4TAB5 MT (14:21)
[2021-02-21] MEDS ORDERED: IBUPROFEN 600MG TABLET PO ONE (14:30)
[2021-02-21] MEDS ORDERED: HYDROCODONE/ACETAMINOPHEN 10/325MG TABLET PO ONE (14:30)
[2021-02-21] MEDS ORDERED: GABA-532 MT (14:37)
[2021-02-21 14:53] VITALS: BP 117/50
== END 2021-02-21 15:04 | disposition home or self-care (01) ==
LOC: ER 10:51
DX: R53.1 Weakness (principal); R11.2 Nausea with vomiting, unspecified; E11.9 Type 2 diabetes mellitus without complications; Z88.0 Allergy status to penicillin; Z88.6 Allergy status to analgesic agent; Z88.8 Allergy status to other drugs, medicaments and biological substances; Z91.041 Radiographic dye allergy status; Z79.899 Other long term (current) drug therapy
CPT/HCPCS: 36415; 74176; 80053; 82962; 83605; 83690; 84484; 85025; 85610; 93005; 96374; 96375; 99285; J1815; J2270; J2405; J7030

== ENCOUNTER 2021-02-27 18:46 | Emergency (ER) | payer MEDICAID ==
[~2021-02-27] VITALS: Ht 162.6 cm; Wt 63.0 kg
[~2021-02-27 18:46] MED LIST changes: +CELE100C MT; +GABA-532 MT; +ONDA4TAB5 MT
[2021-02-27] MEDS ORDERED: IBUP-2029 MT (20:10)
[2021-02-27] MEDS ORDERED: CLIN300C12 MT (20:10)
[2021-02-27] MEDS ORDERED: IBUPROFEN 800MG TABLET PO ONE (20:15)
[2021-02-27] MEDS ORDERED: HYDROCODONE/ACETAMINOPHEN 10/325MG TABLET PO ONE (20:15)
[2021-02-27] MEDS ORDERED: CLINDAMYCIN HCL 150MG CAPSULE PO SCH (20:15)
[2021-02-27 20:23] VITALS: BP 137/64
== END 2021-02-27 20:23 | disposition home or self-care (01) ==
LOC: ER 18:46
DX: K04.7 Periapical abscess without sinus (principal); L03.211 Cellulitis of face; E11.9 Type 2 diabetes mellitus without complications; Z86.718 Personal history of other venous thrombosis and embolism; Z79.01 Long term (current) use of anticoagulants; Z90.49 Acquired absence of other specified parts of digestive tract; Z88.6 Allergy status to analgesic agent; Z91.041 Radiographic dye allergy status; Z88.0 Allergy status to penicillin
CPT/HCPCS: 99283

== ENCOUNTER 2021-03-12 19:19 | Emergency (ER) | payer OTHER ==
[~2021-03-12] VITALS: Ht 170.2 cm; Wt 64.0 kg
[~2021-03-12 19:19] MED LIST changes: +CLIN300C12 MT; +IBUP-2029 MT; +LEVO250T58 MT
[2021-03-12] MEDS ORDERED: LORAZEPAM 2MG/ML CPJ IV ONE (20:15)
[2021-03-12] MEDS: MORPHINE SULFATE 4 MG/ML CPJ (NOT FOR IM USE) IV PRN (20:53)
[2021-03-12 20:54] LABS: BASOPHILS % 0.2 % (0.0-2.0); EOSINOPHILS % 1.1 % (0.0-5.0); HEMATOCRIT. 32.4 % (36.0-48.0); HEMOGLOBIN. 10.9 g/dL (12.0-16.0); LYMPHOCYTES % 35.7 % (20.0-50.0); MEAN CORPUSCULAR HEMOGLOBIN 34.1 pg (28.0-32.0); MEAN PLATELET VOLUME 7.9 fl (7.4-10.4); MONOCYTES % 4.4 % (2.0-8.0); NEUTROPHILS % 58.6 % (40.0-76.0); PLATELET 342 x1000/uL (130-400); RED BLOOD CELL COUNT 3.21 mill/uL (4.2-5.4); RED CELL DISTRIBUTION WIDTH 13.6 % (11.6-14.6)
[2021-03-12 21:01] LABS: CHLORIDE 107 mEq/L (98-107)
[2021-03-12 21:06] LABS: ETHANOL BLOOD < 10 mg/dL
[2021-03-12 21:35] LABS: PARTIAL THROMBOPLASTIN TIME 25.4 sec (23.4-31.0); PROTHROMBIN TIME 10.4 sec (9.6-11.0)
[2021-03-13] MEDS: MORPHINE SULFATE 4 MG/ML CPJ (NOT FOR IM USE) IV PRN ×3 (03:10→06:41)
[2021-03-13 07:21] VITALS: BP 129/61
== END 2021-03-13 07:38 | disposition left against medical advice (07) ==
LOC: ER 19:19 → CANBEDREQ 03-13 07:41
DX: R41.82 Altered mental status, unspecified (principal); R45.1 Restlessness and agitation; E11.65 Type 2 diabetes mellitus with hyperglycemia; I10 Essential (primary) hypertension; D64.9 Anemia, unspecified; F10.20 Alcohol dependence, uncomplicated; Y90.0 Blood alcohol level of less than 20 mg/100 ml; I25.10 Atherosclerotic heart disease of native coronary artery without angina pectoris; F20.9 Schizophrenia, unspecified; Z85.9 Personal history of malignant neoplasm, unspecified; Z79.899 Other long term (current) drug therapy; Z88.0 Allergy status to penicillin; Z91.041 Radiographic dye allergy status; Z86.11 Personal history of tuberculosis
CPT/HCPCS: 36415; 70450; 71045; 80048; 80076; 80320; 84484; 85025; 85610; 85730; 96374; 96375; 99285; J2060; J2270; G0480

== ENCOUNTER 2021-09-07 11:15 | Emergency (ER) | payer OTHER ==
[~2021-09-07] VITALS: Ht 165.1 cm; Wt 65.0 kg
[~2021-09-07 11:15] MED LIST changes: -ACET-3161; -AZIT500T8 PO; -CELE100C MT; -CLIN300C12 MT; -DULO60CA64; -HYDR-3927; -IBUP-2029; -IBUP-2029 MT; +INSLIS SUBCUT; +LANTUSUD SUBCUT; -LEVO250T58 MT; -LEVO500T2 PO
[2021-09-07 12:00] VITALS: BP 145/65
[2021-09-07] MEDS ORDERED: LORAZEPAM 2MG/ML CPJ IM ONE ×2 (12:00→13:15)
[2021-09-07] MEDS ORDERED: GABA-532 MT (18:40)
[2021-09-07] MEDS ORDERED: METH-774 PO (18:40)
[2021-09-07] MEDS ORDERED: LANTUSUD SUBCUT (18:40)
[2021-09-07] MEDS ORDERED: ONDA4TAB5 MT (18:40)
[2021-09-07] MEDS ORDERED: INSLIS SUBCUT (18:40)
== END 2021-09-07 14:36 | disposition left against medical advice (07) ==
LOC: ER 11:15 → CANBEDREQ 15:08
DX: K62.5 Hemorrhage of anus and rectum (principal); E11.9 Type 2 diabetes mellitus without complications; F14.10 Cocaine abuse, uncomplicated; F12.10 Cannabis abuse, uncomplicated; Z79.899 Other long term (current) drug therapy; Z88.0 Allergy status to penicillin
CPT/HCPCS: 70450; 93005; 96372; 99284; J2060

== ENCOUNTER 2021-09-07 14:29 | Emergency (ER) | payer OTHER ==
[~2021-09-07] VITALS: Ht 162.6 cm; Wt 63.6 kg
[2021-09-07 16:28] LABS: BASOPHILS % 0.7 % (0.0-2.0); EOSINOPHILS % 0.5 % (0.0-5.0); HEMATOCRIT. 39.2 % (36.0-48.0); HEMOGLOBIN. 12.8 g/dL (12.0-16.0); MEAN CORPUSCULAR HEMOGLOBIN 33.6 pg (28.0-32.0); MEAN CORPUSCULAR VOLUME 102.6 fL (81.0-99.0); MONOCYTES % 5.5 % (2.0-8.0); NEUTROPHILS % 54.3 % (40.0-76.0); RED BLOOD CELL COUNT 3.82 mill/uL (4.2-5.4); RED CELL DISTRIBUTION WIDTH 13.4 % (11.6-14.6)
[2021-09-07 16:37] LABS: CHLORIDE 115 mEq/L (98-107)
[2021-09-07 16:41] LABS: ETHANOL BLOOD < 10 mg/dL
[2021-09-07 18:00] VITALS: BP 140/48
[2021-09-07] MEDS ORDERED: ONDA4TAB5 MT (18:40)
[2021-09-07] MEDS ORDERED: LANTUSUD SUBCUT (18:40)
[2021-09-07] MEDS ORDERED: METH-774 PO (18:40)
[2021-09-07] MEDS ORDERED: GABA-532 MT (18:40)
[2021-09-07] MEDS ORDERED: INSLIS SUBCUT (18:40)
[2021-09-07 19:00] LABS: MEAN PLATELET VOLUME 9.1 fl (7.4-10.4); PLATELET 184 x1000/uL (130-400)
[2021-09-07 19:01] LABS: PLATELET ESTIMATE NORMAL
== END 2021-09-07 20:34 | disposition home or self-care (01) ==
LOC: ER 14:39
DX: Z76.0 Encounter for issue of repeat prescription (principal); E11.9 Type 2 diabetes mellitus without complications; Z87.891 Personal history of nicotine dependence; Z79.899 Other long term (current) drug therapy; Z88.0 Allergy status to penicillin; Z20.822 Contact with and (suspected) exposure to COVID-19
CPT/HCPCS: 36415; 80053; 80307; 80320; 80329; 82140; 85025; 87426; 87804; 99283; G0480

== ENCOUNTER 2022-08-02 11:55 | Inpatient (IN) | payer MEDICAID, OTHER ==
[~2022-08-02] VITALS: Ht 162.6 cm; Wt 70.8 kg
[~2022-08-02 11:55] MED LIST changes: +FAMO-135 MT; -GABA-532 MT; -INSLIS SUBCUT; -LANTUSUD SUBCUT; -METH-774; -ONDA4TAB5 MT
[2022-08-02] MEDS ORDERED: LORAZEPAM 2MG/ML CPJ IV ONE ×2 (12:45→14:15)
[2022-08-02 13:24] LABS: BASOPHILS % 0.3 % (0.0-2.0); EOSINOPHILS % 0.1 % (0.0-5.0); HEMATOCRIT. 40.9 % (36.0-48.0); LYMPHOCYTES % 23.5 % (20.0-50.0); MEAN CORPUSCULAR HEMOGLOBIN 35.5 pg (28.0-32.0); MEAN CORPUSCULAR VOLUME 103.6 fL (81.0-99.0); MEAN PLATELET VOLUME 7.9 fl (7.4-10.4); MONOCYTES % 5.8 % (2.0-8.0); NEUTROPHILS % 70.3 % (40.0-76.0); PLATELET 313 x1000/uL (130-400); RED BLOOD CELL COUNT 3.95 mill/uL (4.2-5.4); RED CELL DISTRIBUTION WIDTH 12.9 % (11.6-14.6)
[2022-08-02 13:39] LABS: CHLORIDE 101 mEq/L (98-107)
[2022-08-02 13:43] LABS: PROTHROMBIN TIME 10.7 sec (9.6-11.0)
[2022-08-02] MEDS ORDERED: MIDAZOLAM HCL 2 MG/2 ML VIAL IM ONE (17:15)
[2022-08-02 18:32] LABS: *AMPHETAMINES SCREEN URINE NEGATIVE (NEGATIVE); *BARBITURATES SCREEN URINE NEGATIVE (NEGATIVE); *BENZODIAZEPINES SCREEN URINE NEGATIVE (NEGATIVE); *COCAINE SCREEN URINE PRESUMTIVE POSITIVE (NEGATIVE); CANNABINOID URINE SCREEN NEGATIVE (NEGATIVE); METHADONE URINE SCREEN NEGATIVE (NEGATIVE); OPIATES URINE SCREEN PRESUMTIVE POSITIVE (NEGATIVE); PHENCYCLIDINE URINE SCREEN NEGATIVE (NEGATIVE)
[2022-08-02 19:41] LABS: CLARITY URINE HAZY (CLEAR); COLOR URINE YELLOW (YELLOW); PROTEIN URINE 2+ (NEGATIVE)
[2022-08-02 19:42] LABS: KETONES URINE 2+ (NEGATIVE); LEUKOCYTE ESTERASE URINE NEGATIVE (NEGATIVE); NITRITE URINE NEGATIVE (NEGATIVE); OCCULT BLOOD URINE 3+ (NEGATIVE); UROBILINOGEN URINE 0.2 E.U./dL (0.2-1.0)
[2022-08-02] MEDS ORDERED: HYDRALAZINE 20MG/ML VIAL IV NR (23:00)
[2022-08-03 01:30] VITALS: BP 130/77
[2022-08-03 04:00] VITALS: BP 158/82
[2022-08-03] MEDS ORDERED: LORAZEPAM 1MG TABLET PO NR (05:00)
[2022-08-03] MEDS ORDERED: GUAIFENESIN 200MG/10ML SUGAR FREE UDC PO PRN (05:15)
[2022-08-03] MEDS ORDERED: MAGNESIUM/ALUMINUM HYDROXIDE/SIMETHICONE 30ML UDC PO PRN (05:15)
[2022-08-03] MEDS ORDERED: HYDRALAZINE 20MG/ML VIAL IV PRN (05:15)
[2022-08-03] MEDS ORDERED: CLONIDINE 0.1MG TABLET PO PRN (05:15)
[2022-08-03] MEDS ORDERED: HYDRALAZINE 10 MG in SODIUM CHLORIDE 0.9% 49.5 ML IV PRN (05:15)
[2022-08-03] MEDS ORDERED: ACETAMINOPHEN 325MG TABLET PO PRN (05:15)
[2022-08-03] MEDS ORDERED: IPRATROPIUM/ALBUTEROL 0.5-3(2.5)MG/3ML NEB HHN PRN (05:15)
[2022-08-03] MEDS ORDERED: ONDANSETRON HCL 4MG/2ML INJ IV PRN (05:15)
[2022-08-03] MEDS ORDERED: DOCUSATE SODIUM 250MG CAPSULE PO PRN (05:15)
[2022-08-03] MEDS ORDERED: NALOXONE HCL 1 MG/ML 2ML VIAL IV NR (05:30)
[2022-08-03] MEDS ORDERED: DEXTROSE 50% WATER 50ML SYRINGE IV PRN (05:30)
[2022-08-03] MEDS: SODIUM CHLORIDE 0.9% 1,000 ML IV SCH ×2 (07:01→19:05)
[2022-08-03] MEDS: BLOOD SUGAR DIAGNOSTIC STRIP TEST SCH ×4 (07:30→21:09)
[2022-08-03] MEDS ORDERED: MORPHINE SULFATE 2 MG/ML CPJ (NOT FOR IM USE) IV PRN (07:45)
[2022-08-03] MEDS: LORAZEPAM 2MG/ML CPJ IV PRN ×3 (07:49→21:35)
[2022-08-03 08:00] VITALS: BP 118/64
[2022-08-03] MEDS: INSULIN LISPRO 100 UNITS/ML SUBCUT SCH ×4 (08:00→22:14)
[2022-08-03] MEDS: ENOXAPARIN 40MG/0.4ML SYR SUBCUT SCH (09:00)
[2022-08-03] MEDS: DOCUSATE SODIUM 100MG CAPSULE PO SCH (09:00)
[2022-08-03 09:58] LABS: T4 FREE 1.02 ng/dL (0.76-1.46)
[2022-08-03 11:39] LABS: VITAMIN B12 SERUM 447 pg/mL (211-911)
[2022-08-03 12:00] VITALS: BP 112/65
[2022-08-03 13:08] LABS: FOLIC ACID (FOLATE) SERUM > 20.00 ng/mL (>5.38)
[2022-08-03 16:00] VITALS: BP 121/64
[2022-08-03 20:00] VITALS: BP 103/52
[2022-08-03] MEDS: FAMOTIDINE 20MG TABLET PO SCH (21:00)
[2022-08-03] MEDS: ATORVASTATIN CALCIUM 40MG TABLET PO SCH (21:00)
[2022-08-03] MEDS: ACETAMINOPHEN 325MG TABLET PO PRN (21:35)
[2022-08-04 01:00] VITALS: BP 148/71
[2022-08-04] MEDS: LORAZEPAM 2MG/ML CPJ IV PRN ×2 (01:24→08:02)
[2022-08-04 04:00] VITALS: BP 135/60
[2022-08-04] MEDS: BLOOD SUGAR DIAGNOSTIC STRIP TEST SCH ×4 (07:20→21:00)
[2022-08-04] MEDS: INSULIN LISPRO 100 UNITS/ML SUBCUT SCH ×4 (07:50→21:23)
[2022-08-04] MEDS ORDERED: TRAMADOL 50MG TABLET PO PRN (08:00)
[2022-08-04] MEDS: SODIUM CHLORIDE 0.9% 1,000 ML IV SCH ×2 (08:15→21:45)
[2022-08-04] MEDS: ENOXAPARIN 40MG/0.4ML SYR SUBCUT SCH (08:16)
[2022-08-04] MEDS: DOCUSATE SODIUM 100MG CAPSULE PO SCH (08:16)
[2022-08-04] MEDS: FAMOTIDINE 20MG TABLET PO SCH ×2 (08:16→21:17)
[2022-08-04] MEDS: TRAMADOL 50MG TABLET PO SCH ×4 (10:43→23:55)
[2022-08-04 20:00] VITALS: BP 114/58
[2022-08-04] MEDS: SERTRALINE HCL 25MG TABLET PO SCH (21:17)
[2022-08-04] MEDS: ATORVASTATIN CALCIUM 40MG TABLET PO SCH (21:17)
[2022-08-04] MEDS ORDERED: NALOXONE HCL 0.4MG/ML VIAL IV PRN (23:00)
[2022-08-05] VITALS: BP 127/63
[2022-08-05] MEDS ORDERED: LORAZEPAM 2MG/ML CPJ IV PRN ×2 (01:45)
[2022-08-05] MEDS: TRAMADOL 50MG TABLET PO SCH (05:31)
[2022-08-05] MEDS: BLOOD SUGAR DIAGNOSTIC STRIP TEST SCH ×4 (06:39→21:23)
[2022-08-05] MEDS: INSULIN LISPRO 100 UNITS/ML SUBCUT SCH ×4 (07:50→21:22)
[2022-08-05 08:00] VITALS: BP 129/59
[2022-08-05] MEDS: ENOXAPARIN 40MG/0.4ML SYR SUBCUT SCH (09:00)
[2022-08-05] MEDS: FAMOTIDINE 20MG TABLET PO SCH ×2 (09:32→21:21)
[2022-08-05] MEDS: DOCUSATE SODIUM 100MG CAPSULE PO SCH (09:33)
[2022-08-05] MEDS: SERTRALINE HCL 25MG TABLET PO SCH (09:33)
[2022-08-05] MEDS: ACETAMINOPHEN 325MG TABLET PO PRN (09:37)
[2022-08-05] MEDS ORDERED: IBUPROFEN 800MG TABLET PO PRN (10:45)
[2022-08-05] MEDS: TRAMADOL 50MG TABLET PO PRN ×2 (10:56→19:14)
[2022-08-05] MEDS: SODIUM CHLORIDE 0.9% 1,000 ML IV SCH (11:05)
[2022-08-05] MEDS: ATORVASTATIN CALCIUM 40MG TABLET PO SCH (21:21)
[2022-08-05] MEDS ORDERED: TRAMADOL 50MG TABLET PO PRN (23:30)
[2022-08-06] VITALS: BP 134/38
[2022-08-06] MEDS: SODIUM CHLORIDE 0.9% 1,000 ML IV SCH ×2 (00:25→13:45)
[2022-08-06] MEDS: TRAMADOL 50MG TABLET PO PRN ×2 (01:59→14:15)
[2022-08-06 04:00] VITALS: BP 121/44
[2022-08-06] MEDS: BLOOD SUGAR DIAGNOSTIC STRIP TEST SCH ×3 (05:17→17:17)
[2022-08-06 08:00] VITALS: BP 107/55
[2022-08-06] MEDS: FAMOTIDINE 20MG TABLET PO SCH ×2 (09:00→09:36)
[2022-08-06] MEDS: ENOXAPARIN 40MG/0.4ML SYR SUBCUT SCH (09:00)
[2022-08-06] MEDS: SERTRALINE HCL 25MG TABLET PO SCH ×2 (09:00→09:35)
[2022-08-06] MEDS: DOCUSATE SODIUM 100MG CAPSULE PO SCH (09:35)
[2022-08-06] MEDS: INSULIN LISPRO 100 UNITS/ML SUBCUT SCH ×3 (09:37→17:17)
[2022-08-06 12:00] VITALS: BP 117/60
[2022-08-06] MEDS ORDERED: IBUP-2029 PO (16:19)
[2022-08-06] MEDS ORDERED: LIP40 PO (16:19)
[2022-08-06 16:47] VITALS: BP 117/60
== END 2022-08-06 18:45 | disposition home or self-care (01) | DRG 816 ==
LOC: ER 11:55 → 5EST 21:19 → EDBEDREQ 21:28 → EDBEDREQTM 21:28 → ENRESERV 22:31 → 6WST 08-03 19:14
PROVIDERS: ADMIT Internal Medicine; ATTEND Internal Medicine
DX: T40.5X1A Poisoning by cocaine, accidental (unintentional), initial encounter (principal); G92.8 Other toxic encephalopathy; I50.30 Unspecified diastolic (congestive) heart failure; I11.0 Hypertensive heart disease with heart failure; D75.89 Other specified diseases of blood and blood-forming organs; F14.10 Cocaine abuse, uncomplicated; E11.65 Type 2 diabetes mellitus with hyperglycemia; E78.5 Hyperlipidemia, unspecified; T40.2X1A Poisoning by other opioids, accidental (unintentional), initial encounter; I16.0 Hypertensive urgency; F17.200 Nicotine dependence, unspecified, uncomplicated; J45.909 Unspecified asthma, uncomplicated; G40.909 Epilepsy, unspecified, not intractable, without status epilepticus; F31.9 Bipolar disorder, unspecified; Z20.822 Contact with and (suspected) exposure to COVID-19; Z79.4 Long term (current) use of insulin; Z88.0 Allergy status to penicillin; Z88.8 Allergy status to other drugs, medicaments and biological substances; Z79.899 Other long term (current) drug therapy; Z90.49 Acquired absence of other specified parts of digestive tract; Y92.89 Other specified places as the place of occurrence of the external cause
CPT/HCPCS: 36415; 71045; 74176; 80053; 80061; 80305; 81003; 82607; 82746; 82962; 83036; 83880; 84439; 84443; 84484; 85025; 87426; 92610; 93005; 93306; 97116; 97162; 99285; C1893; J0360; J1650; J1815; J2060; J2250; J2270; J7030